=== PATIENT | female | born 1960 | race Caucasian/White ===

== ENCOUNTER 2021-07-22 09:45 | Day surgery (SDC) | payer BC ==
[2021-07-22] MEDS ORDERED: Propofol 200 MG/20 ML SDV ONE (09:55)
[2021-07-22] MEDS ORDERED: Midazolam 1 MG/ML 2 ML SDV ONE (09:55)
[2021-07-22] MEDS ORDERED: fentaNYL 100 MCG/2 ML SDV ONE (09:55)
[2021-07-22] MEDS ORDERED: Sodium Chloride 0.9% 1,000 ML IV SCH (10:45)
== END 2021-07-22 11:58 | disposition home or self-care (01) ==
LOC: JP.SDS 09:45
PROVIDERS: ATTEND Surgery
DX: K57.30 Diverticulosis of large intestine without perforation or abscess without bleeding (principal); I10 Essential (primary) hypertension
CPT/HCPCS: J2250; J2704; J3010; J7030